=== PATIENT | female | born 1990 | race African-American/Black ===

== ENCOUNTER 2020-12-31 00:18 | Emergency (ER) | payer OTHER ==
[~2020-12-31] VITALS: Ht 162.6 cm; Wt 65.3 kg
[2020-12-31 01:40] VITALS: BP 118/77
== END 2020-12-31 01:41 | disposition home or self-care (01) ==
LOC: ER 00:18
DX: S01.01XA Laceration without foreign body of scalp, initial encounter (principal); Z91.012 Allergy to eggs; W25.XXXA Contact with sharp glass, initial encounter; Y93.89 Activity, other specified; Y92.89 Other specified places as the place of occurrence of the external cause; Y99.8 Other external cause status